=== PATIENT | female | born 1965 | race Caucasian/White ===

== ENCOUNTER 2024-08-17 10:09 | Outpatient (CLI) | payer OTHER, SELFPAY ==
--- NOTE | ~2024-08-17 | MR_ITS ---
Procedure: MR shoulder RT wo con Ordering provider: Liya Ham, DO History: . impingement syndrome . Comparison: Technique: MRI right shoulder without contrast. FINDINGS: ACROMIOCLAVICULAR JOINT: Mild arthropathy. No medial coracoacromial arch stenosis. ROTATOR CUFF: The supraspinatus tendon shows T2 bright signal near to the insertion into the humerus suggestive of partial tear versus tendinosis. Follow-up advised.. No subacromial subdeltoid bursitis . No evidence for subcoracoid impingement or subscapularis tendinosis or tear. PROXIMAL BICEPS TENDON: The proximal biceps tendon and biceps labral complex are normal. The rotator interval is normal as visualized without intraarticular contrast. INFERIOR GLENOHUMERAL LIGAMENT COMPLEX: Normal anterior and posterior bands. Normal axillary pouch. LABRUM: The superior labrum is normal. The anteroinferior labrum is normal. The posterior labrum is normal. BONES: Mild degenerative osseous cysts are seen involving the greater tuberosity of the humerus. Mar row signal is otherwise normal. GLENOHUMERAL JOINT SPACE: The glenohumeral joint space is well maintained although the articular cart ilage is not well visualized without intraarticular contrast. No joint effusion. SUPERFICIAL AND DEEP SOFT TISSUES: Otherwise, normal. No paralabral cyst. Small cystic area is seen superior to the supraspinatus tendon. IMPRESSION: Partial tear versus tendinosis of the supraspinatus tendon near to the insertion into the humerus. Mild osteoarthritic changes of the acromioclavicular joint and glenohumeral joint. Reviewed, dictated and finalized at location A. WAITER/HEADWAITRESS IMPRESSION: Partial tear versus tendinosis of the supraspinatus tendon near to the insertio n into the humerus. Mild osteoarthritic changes of the acromioclavicular joint and glenohumeral trentiris melo.
== END 2024-08-17 10:10 | disposition home or self-care (01) ==
PROVIDERS: Visit Provider Orthopaedic Surgery
DX: R93.89 Abnormal findings on diagnostic imaging of other specified body structures (principal); M19.011 Primary osteoarthritis, right shoulder; M75.41 Impingement syndrome of right shoulder; M75.81 Other shoulder lesions, right shoulder; S46.011A Strain of muscle(s) and tendon(s) of the rotator cuff of right shoulder, initial encounter
CPT/HCPCS: 73221